=== PATIENT | male | born 1960 | race Caucasian/White ===

== ENCOUNTER → 2016-11-04 | Day surgery (SDC) | payer OTHER ==
[2016-11-03 13:49] VITALS: Ht 182.9 cm; Wt 79.5 kg
[~2016-11-04] VITALS: Ht 182.9 cm; Wt 79.5 kg
[~2016-11-04] MED LIST: ATROPINE SULFATE 0.1 MG/ML 5ML SYR IV PRN; CEFAZOLIN 1000MG/55 ML D5W IV SCH; CHOL100010 PO; DEXAMETHASONE SOD INJ 4 MG/ML VIAL ONE; EFIN1SOL TOP; EpHEDrine SULFATE INJ 50 MG/ML AMP IV PRN; EpINEphrine INJ 1MG/ML AMP 1 MG/ML AMP ONE; FENTANYL CITRATE INJ 50 MCG/1 ML 2 ML VIAL IV PRN; FENTANYL CITRATE INJ 50 MCG/1 ML 2 ML VIAL ONE; FLUMAZENIL 0.1 MG/1 ML 10 ML VIAL IV PRN; HYDROmorphone INJ 2 MG/ML SYR/VIAL IV PRN; KETO10TA PO; KETOROLAC TROMETHAMINE 30 MG/ML VIAL ONE; LABETALOL HCL IV 5 MG/ML 20ML IV PRN; LACTATED RINGER'S 1000ML 1,000 ML IV SCH; LEVO75TA5 PO; LIDOCAINE HCL 2% 2 ML VIAL (20MG/ML) ONE; MEPERIDINE HCL 25 MG/ML CARP IV PRN; MIDAZOLAM HCL 1 MG/ML 2ML VIAL ONE; MULT-506 PO; NALOXONE HCL 0.4 MG/1 ML VIAL/CARP IV PRN; ONDANSETRON INJ 2 MG/ML 2 ML VIAL IV PRN; ONDANSETRON INJ 2 MG/ML 2 ML VIAL ONE; OXYC-57 PO; OXYCODONE/ACETAMINOPHEN 5-325 TAB PO PRN; PATIENT'S ALLERGY INFO NEEDS ENTERED SCH; PHENYLEPHRINE 100MCG/ML 5ML SYR IV PRN; PROPOFOL IV EMULSION 10 MG/ML 20 ML VIAL IV ONE; ROPIVACAINE 0.5% 5 MG/ML 30 ML VIAL ONE; SODIUM CHLORIDE 0.9% 1000ML 1,000 ML IV SCH; SUCCINYLCHOLINE 100MG/5ML SYR IV ONE
--- NOTE | 2016-11-04 10:04 | History & Physical Bridge - [place] ---
H&P Re-Evaluation Bridge Note: I have examined the patient, reviewed the History & Physical and in the interval since the performance of the History & Physical I have noted the following changes of clinical significance: No changes noted
--- NOTE | 2016-11-04 10:48 | Discharge Instructions-SurgCtr ---
Discharge Instructions Visit Reason for Visit: Left Knee Chondromalacia, Acute Medial Meniscal Te Discharge Discharge Diagnosis / Problem: left knee medial meniscus tear Discharge Goals Goal(s): Decrease discomfort, Therapeutic intervention Activity Recommendations Weightbearing Status: Left weightbearing (as tolerated) Anesthesia . Post Anesthesia Instructions: If you have had General Anesthesia or IV Sedation: * Do not drive today. * Resume driving when surgeon permits. * Do not make important decisions or sign legal documents today. * Call surgeon for: 1. Temperature elevations greater than 101 degrees F. 2. Uncontrollable pain. 3. Excessive bleeding. 4. Persistent nausea and vomiting. 5. Medication intolerance (nausea, vomiting or rash). * For nausea and vomiting use only clear liquids such as: tea, soda, bouillon until nausea subsides, then gradually increase diet as tolerated. * If you have any concerns or questions, call your surgeon's office. If physician is unavailable and it is an emergency, call 911 or go to the nearest emergency room. . Instructions / Follow-Up Instructions / Follow-Up MEDICATIONS: * Resume previous medications unless instructed otherwise by your surgeon. * Always take pain medication on a full stomach or with food to avoid upset stomach. * Do not drink alcohol or drive while taking narcotics. * Ibuprofen or Tylenol may be taken if narcotic not needed. no ibuprofen while taking toradol SPECIAL CARE INSTRUCTIONS: __ None _x_ Keep extremity elevated and iced x 48 hours; apply ice 20-30 minutes 8-10 times/day. May remove at night. __ Crutches __ May discard when able __ Brace/Post-op shoe __ 24 hrs/day __ Remove at night _x_ Dressing __ Maintain until seen in office, may shower with plastic over site _x_ Remove dressings in 24-48 hours and then may shower _x_ Cover incisions with band-aids after showering __ Do not remove steri-strips Call physician if chills or temperature rises above 102 degrees or pain unrelieved by prescribed pain medications. Office [phone] Diet Recommendations Home Diet: resume previous diet Procedures Procedures Performed: Left Knee Arthroscopy, Partial Medial Mensicectomy Pending Studies Studies pending at discharge: no Medical Emergencies . Who to Call and When: Medical Emergencies: If at any time you feel your situation is an emergency, please call 911 immediately. . Non-Emergent Contact Non-Emergency issues call your: Primary Care Provider, Surgeon . . "Provider Documentation" section prepared by Prince Hunter.
--- NOTE | 2016-11-04 10:50 | [facility] Post Operative Brief Note ---
Immediate Operative Summary Operative Date Nov 04, 2016. Pre-Operative Diagnosis Left Knee Acute Medial Meniscal Tear, Chondromalacia/DJD Post-Operative Diagnosis Same Procedure(s) Performed Left Knee Arthroscopy, Partial Medial Mensicectomy Surgeon Dr. Zazueta [employer] Surgeon(s) Avery Hunter PA-C Estimated Blood Loss Minimal Findings Medial Meniscus Tear + DJD Specimens None Anesthesia General Complication(s) None Disposition Recovery Room / PACU
--- NOTE | 2016-11-04 11:33 | OPERATIVE REPORT ---
DATE OF OPERATION: 11/04/2016 SURGEON: Dr. Anthony Zazueta. EXPLOSIVE MAN: MONTY Borges. PREOPERATIVE DIAGNOSIS: 1. Left medial meniscus tear. 2. Left knee degenerative joint disease. POSTOPERATIVE DIAGNOSIS: 1. Left knee complex degenerative medial meniscus tear. 2. 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 PROCEDURE PERFORMED: 1. Left knee exam under anesthesia. 2. Left knee diagnostic arthroscopy. 3. Left knee arthroscopic partial medial meniscectomy. COMPLICATIONS: None. ESTIMATED BLOOD LOSS: Minimal. TOURNIQUET TIME: 22 minutes at 300 mmHg. ANESTHESIA: General. SPECIMENS: None. OPERATIVE INDICATIONS: The patient is a 56-year-old gentleman who has had about a 6-month history of left knee pain and discomfort. He has got a known history of some anterior knee pain, but started having more mechanical symptoms. He was seen in clinic and diagnosed with a meniscus tear. This was confirmed by MRI. The patient elected to proceed with operative treatment. OPERATIVE FINDINGS: Examination under anesthesia of the left knee revealed no significant effusion. Range of motion was full extension to 135 degrees of flexion. He had negative Ashley, negative anterior drawer, negative posterior drawer, and no varus or valgus instability. Amie's was positive for significant clunk medially. ARTHROSCOPIC FINDINGS: Arthroscopic findings revealed no significant effusion. He had some grade 2-3 changes of the undersurface of the patella which are chronic and diffuse. The trochlea is well preserved. In the intercondylar notch, the ACL and PCL were intact. In the medial compartment, there was a very complex degenerative tear of the posterior horn of the medial meniscus tear with a bucket handle component to it. There were some diffuse grade 2 changes of the cartilage. In the lateral compartment, there were diffuse grade 1 changes. A little fraying of the inner rim of the lateral meniscus. OPERATIVE PROCEDURE: The patient was taken to the operating room, identified and placed on operative room table in the supine position. All contact areas were meticulously padded. A general anesthetic was implemented by the anesthesia team. A left thigh tourniquet was then placed. The left knee was then examined under anesthesia with the findings as described above. The left leg was then prepped and draped in the usual sterile fashion. The left leg was elevated and exsanguinated with Esmarch and tourniquet was placed at 300 mmHg. Routine left knee arthroscopy was then performed through a typical anteromedial and anterolateral portals. A superolateral outflow portal was established for outflow. I had to resect some of the fat pad in order to pass the instruments adequately. Attention was then drawn to the medial meniscus. With the use of motorized and hand control instruments, a partial medial meniscectomy was then performed. There was a bucket handle component and then the anterior and posterior flap tears which were also removed. We then trim this back to stable tissue along the rim. Once this was complete, the arthroscopic instruments were placed throughout the knee joint. I did shave some of the inner rim fraying of the lateral meniscus, but this was minimal meniscal tissue. I did very lightly shave the undersurface of patella of any hanging articular fraying cartilage. The scope was then placed throughout the knee joint. All extraneous debris was removed. The arthroscopic instruments were then removed from the joint and the portals were closed with 3-0 Prolene suture in a horizontal mattress fashion. The knee was injected with 30 mL of 0.5% ropivacaine with epinephrine and 30 mg of Toradol. A sterile dressing composed of Xeroform, 4 x 4, sterile cast padding and an Lexa bandage were applied. The tourniquet was then let down for a final tourniquet time of 22 minutes. The patient was then brought out of general anesthesia and transferred to the recovery room in stable condition. The patient tolerated the procedure with no complications. All needle and sponge counts were correct at the end of the operation. I attest to the content of the Intraoperative Record and any orders documented therein. Any exceptions are noted below. ALBERT
[2016-11-04 11:52] VITALS: TEMP 36.4
--- NOTE | 2016-11-04 11:55 | Anesthesia Progress Nt - [facility] ---
Anesthesia Post Op Note Date & Time Nov 04, 2016 at 11:54 Vital Signs Pain Intensity: 0 Vital Signs Past 12 Hours Date Time Temp Pulse Resp B/P Pulse Ox O2 Delivery O2 Flow Rate FiO2 11/04/16 11:52 36.4 59 20 113/78 97 Room Air 11/04/16 11:29 59 15 96 11/04/16 11:29 61 15 110/92 96 11/04/16 11:28 36.4 11/04/16 11:24 64 21 96 11/04/16 11:24 63 21 11/04/16 11:23 113/89 11/04/16 11:19 60 12 107/77 99 11/04/16 11:19 61 12 11/04/16 11:14 60 4 11/04/16 11:14 60 4 99 11/04/16 11:13 106/81 11/04/16 11:09 61 5 11/04/16 11:09 60 5 99 11/04/16 11:08 108/82 11/04/16 11:04 63 15 11/04/16 11:04 64 15 123/84 99 11/04/16 10:59 67 20 11/04/16 10:59 67 20 118/81 100 11/04/16 10:59 36.4 65 14 114/80 98 Diffusion Mask 8 11/04/16 08:45 36.7 65 18 127/83 100 Room Air Notes Mental Status: alert / awake / arousable, participated in evaluation Pt Amnestic to Procedure: Yes Nausea / Vomiting: adequately controlled Pain: adequately controlled Airway Patency, RR, SpO2: stable & adequate BP & HR: stable & adequate Hydration State: stable & adequate Anesthetic Complications: no major complications apparent
[2016-11-04 12:06] VITALS: BP 111/75; PULSE 55; O2SAT 95
== END | disposition home or self-care (01) ==
LOC: X.SURG 08:27
PROVIDERS: ATTEND Orthopaedic Surgery Sports Medicine
DX: M23.222 Derangement of posterior horn of medial meniscus due to old tear or injury, left knee (principal); M17.12 Unilateral primary osteoarthritis, left knee; E06.3 Autoimmune thyroiditis; Z88.2 Allergy status to sulfonamides; Z88.1 Allergy status to other antibiotic agents; Z98.890 Other specified postprocedural states